=== PATIENT | female | born 1940 | race Hispanic/Latino ===

== ENCOUNTER 2017-01-14 16:15 | Emergency (ER) | payer MEDICARE, OTHER ==
[2017-01-14 16:15] VITALS: BMI 36.6
[2017-01-14] MEDS ORDERED: Sodium Chloride 0.9% 1,000 ML IV STA (16:32)
--- NOTE | 2017-01-14 16:36 | ED PDOC ---
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 per pt she has been feeling generally weak and also "spinning" sensation for the last couple days, worse w sitting up and standing. today she was getting up from the toilet when she felt unsteady and fell forward and hit her head on the wall. she denies any LOC. her daughter came right in and found her on the floor-helped her to bed, gave her some chocolate and within an hour she felt better. she still has some spinning sensation. she admits to not drinking much fluids in general including today. Symptom Onset: Sudden Symptom Course: Unchanged Activities at Onset: Rest Context: Home Past Medical History - Provider Review Nursing Documentation Reviewed: Yes - Infectious Disease Hx of Infectious Diseases: None - Tetanus Immunization Tetanus Immunization: Unknown - Reproductive Menopause: Yes - Cardiac Hx Cardiac Disorders: Yes Hx Hypertension: Yes - Pulmonary Hx Respiratory Disorders: No - Neurological Hx Neurological Disorder: No - HEENT Hx HEENT Disorder: Yes Hx Glaucoma: Yes - Renal Hx Renal Disorder: No - Endocrine/Metabolic Hx Endocrine Disorders: Yes Other/Comment: goiter - Hematological/Oncological Hx AIDS: No Hx Anemia: Yes - Integumentary Hx Dermatological Disorder: Yes Other/Comment: VITILIGO,10--15 CELLULITIS TO TIP OF RIGHT DISTAL INDEX FINGER - Musculoskeletal/Rheumatological Hx Arthritis: Yes Hx Gout: Yes Hx Rheumatoid Arthritis: Yes - Gastrointestinal Hx Gastrointestinal Disorders: No - Genitourinary/Gynecological Hx Genitourinary Disorders: No - Psychiatric Hx Psychophysiologic Disorder: No Hx Depression: Yes Hx Substance Use: No - Past Surgical History Past Surgical History: No Previous - Anesthesia Hx Anesthesia: No Hx Anesthesia Reactions: No - Suicidal Assessment Feels Threatened In Home Enviroment: No Family/Social History - Physician Review Nursing Documentation Reviewed: Yes Family/Social History: No Known Family HX, Other (nc) Smoking Status: Never Smoked Hx Alcohol Use: No Hx Substance Use: No Hx Substance Use Treatment: No Allergies/Home Meds Allergies/Adverse Reactions: Allergies Sulfa (Sulfonamide Antibiotics) Allergy (Verified 01/14/17 16:25) RASH Home Medications: Home Meds Medication Instructions Recorded Confirmed Acetaminophen [Tylenol Extra 500 mg PO BID PRN 01/14/17 01/14/17 Strength] Aspirin [Low Dose Aspirin EC] 81 mg PO HS 01/14/17 01/14/17 Carvedilol [Coreg] 25 mg PO DAILY 01/14/17 01/14/17 Cholecalciferol (Vitamin D3) 1 tab PO DAILY 01/14/17 01/14/17 [Vitamin D3] Cranberry Fruit Extract [Cranberry] 1 tab PO DAILY 01/14/17 01/14/17 Fenofibrate [Tricor] 145 mg PO DAILY 01/14/17 01/14/17 Folic Acid/Multivit-Min/Lutein 1 tab PO DAILY 01/14/17 01/14/17 [Centrum Silver Chewable Tablet] Nortriptyline HCl [Pamelor] 50 mg PO HS 01/14/17 01/14/17 [place]-3 Fatty Acids [Fish Oil] 1,000 mg PO DAILY 01/14/17 01/14/17 traMADol [Ultram] 50 mg PO DAILY 01/14/17 01/14/17 Review of Systems - Review of Systems Constitutional: absent: Fevers Eyes: absent: Vision Changes ENT: absent: Hearing Changes, Tinnitus Respiratory: absent: SOB, Cough Cardiovascular: absent: Chest Pain, Palpitations, Edema Gastrointestinal: absent: Abdominal Pain, Stool Changes, Diarrhea, Nausea, Vomiting, Hematochezia Genitourinary Female: absent: Dysuria Musculoskeletal: absent: Neck Pain Neurological: absent: Headache, Focal Weakness Physical Exam Vital Signs Reviewed: Yes Vital Signs Temp Pulse Resp BP Pulse Ox 01/14/17 18:40 80 18 128/67 97 01/14/17 16:49 98.1 F 61 18 132/72 96 Temperature: Afebrile Blood Pressure: Normal Pulse: Regular Respiratory Rate: Normal Appearance: Positive for: Well-Appearing, Non-Toxic, Comfortable Pain Distress: None Mental Status: Positive for: Alert and Oriented X 3 - Systems Exam Head: Present: Other (small superifical abrasion on the forehead) Pupils: Present: PERRL Extroacular Muscles: Present: EOMI Conjunctiva: Present: Normal Mouth: Present: Moist Mucous Membranes Neck: Present: Normal Range of Motion. No: MIDLINE TENDERNESS Respiratory/Chest: Present: Clear to Auscultation. No: Respiratory Distress, Accessory Muscle Use Cardiovascular: Present: Regular Rate and Rhythm Abdomen: No: Tenderness, Distention Upper Extremity: Present: NORMAL PULSES, Neurovascularly Intact, Other ( ecchymosis on left later arm). No: Deformity Lower Extremity: Present: Normal ROM Neurological: Present: GCS=15, CN II-XII Intact, Motor Func Grossly Intact, Normal Sensory Function, Normal Cerebellar Funct, Other (no focal deficits) Skin: Present: Warm, Dry Psychiatric: Present: Alert, Oriented x 3 Medical Decision Making ED Course and Treatment: ecg- sinus kanika 59, RBBB, similar to prior 08/11/16 CT Head Without Intravenous Contrast FINDINGS: Artifacts: Artifact in some of the images likely relates to motion. Brain: Volume loss. Mild chronic small vessel white matter ischemic change. No acute hemorrhage. No acute infarct. Ventricles: No hydrocephalus. Bones/joints: Unremarkable. No acute fracture. Soft tissues: Unremarkable. Sinuses: Minimal sphenoid sinus mucosal thickening. No fluid levels. Mastoid air cells: Unremarkable as visualized. No mastoid effusion. IMPRESSION: No acute intracranial findings. Involutional and mild chronic small vessel white matter ischemic change. Dictated and Authenticated by: Ji Trejo MD 01/14/2017 7:33 PM Eastern Time ([place] & [place]) 01/14/17 20:40 pt reports feeling better after IVF and meclizine. she is up ambulating around the ED without difficulty. she and family are comfortable w dc home at this time. follow up and return prec advised. - Lab Interpretations Lab Results: 01/14/17 16:30 01/14/17 16:30 Lab Results 01/14/17 16:30: Sodium 134, Potassium 4.3, Chloride 98, Carbon Dioxide 29, Anion Gap 11, BUN 28 H, Creatinine 1.1, Est GFR ( Amer) 58, Est GFR (Non- Af Amer) 48, Random Glucose 84, Calcium 9.8, Total Bilirubin 0.7, AST 36, ALT 27 , Alkaline Phosphatase 54, Troponin I < 0.01, Total Protein 7.8, Albumin 4.4, Globulin 3.4, Albumin/Globulin Ratio 1.3 01/14/17 16:30: WBC 4.8, RBC 5.90, Hgb 11.3 L, Hct 35.4 L, MCV 60.0 L, MCH 19.2 L, MCHC 31.9, RDW 17.0 H, Plt Count 220, Gran % 71.4 H, Lymph % (Auto) 17.1 L, [place] % (Auto) 9.6 H, Eos % (Auto) 1.7, Baso % (Auto) 0.2, Gran # 3.42, Lymph # 0.8 L, [place] # 0.5, Eos # 0.1, Baso # 0.01 I have reviewed the lab results: Yes - RAD Interpretation Radiology Orders: 01/14/17 16:31 HEAD W/O CONTRAST [CT] Stat CHEST ONE VIEW [RAD] Stat - EKG Interpretation Interpreted by ED Physician: Yes Type: 12 lead EKG - Medication Orders Current Medication Orders: Discontinued Medications Sodium Chloride (Sodium Chloride 0.9%) 1,000 mls @ 999 mls/hr IV .Q1H1M STA Stop: 01/14/17 17:32 Last Admin: 01/14/17 16:54 Dose: 999 mls/hr Meclizine HCl (Antivert) 25 mg PO STAT STA Stop: 01/14/17 16:33 Last Admin: 01/14/17 16:54 Dose: 25 mg Midazolam HCl (Versed Inj) 1 mg IVP ONCE ONE Stop: 01/14/17 18:16 Last Admin: 01/14/17 18:36 Dose: 1 mg - Scribe Statement The provider has reviewed the documentation as recorded by the Nicole Kraus Provider Scribe Attestation: All medical record entries made by the Scribe were at my direction and personally dictated by me. I have reviewed the chart and agree that the record accurately reflects my personal performance of the history, physical exam, medical decision making, and the department course for this patient. I have also personally directed, reviewed, and agree with the discharge instructions and disposition. ' Disposition/Present on Arrival - Present on Arrival Any Indicators Present on Arrival: No History of DVT/PE: No History of Uncontrolled Diabetes: No Urinary Catheter: No History of Decub. Ulcer: No History Surgical Site Infection Following: None - Disposition Have Diagnosis and Disposition been Completed?: Yes Diagnosis: Vertigo Disposition: HOME/ ROUTINE Disposition Time: 20:40 Patient Problems: Current Active Problems Problem Status Onset Vertigo Acute Condition: IMPROVED Discharge Instructions (ExitCare): Vertigo (ED) Additional Instructions: Please follow up with your doctor on Sunday. Return to the ER for any worsening symptoms or for any other concerns. Prescriptions: Meclizine [Meclizine*] 25 mg PO Q8H PRN #30 tab PRN Reason: vertigo
[2017-01-14 16:49] VITALS: TEMP 98.1
[2017-01-14 17:07] LABS: ADD MANUAL DIFF? NO
[2017-01-14 17:20] LABS: ALB/GLOB RATIO 1.3 (1.1-1.8); ALKALINE PHOSPHATASE 54 U/L (38-133); ALT/SGPT 27 U/L (7-56); AST/SGOT 36 U/L (15-39); BILIRUBIN,TOTAL 0.7 mg/dL (0.2-1.3); BLOOD UREA NITROGEN 28 mg/dL (7-21); CALCIUM 9.8 mg/dL (8.4-10.5); CARBON DIOXIDE 29 mmol/L (21-33); CHLORIDE 98 mmol/L (98-107); GFR AFRICAN-AMERICAN 58; GLUCOSE,RANDOM 84 mg/dL (70-110); POTASSIUM 4.3 mmol/L (3.6-5.0); SODIUM 134 mmol/L (132-148); TOTAL PROTEIN 7.8 g/dL (5.8-8.3)
[2017-01-14 17:30] LABS: BASO # 0.01 K/mm3 (0.0-2.0); BASO % 0.2 % (0.0-3.0); EOS # 0.1 (0.0-0.7); EOS % 1.7 % (1.5-5.0); GRAN # 3.42 (1.4-6.5); GRAN % 71.4 % (50.0-68.0); HEMATOCRIT 35.4 % (36.0-48.0); LYMPH # 0.8 (1.2-3.4); LYMPH % 17.1 % (22.0-35.0); MEAN CORPUSCULAR HEMOGLOBIN 19.2 pg (25.0-35.0); MEAN CORPUSCULAR HGB CONC 31.9 g/dl (31.0-37.0); MONO # 0.5 (0.1-0.6); MONO % 9.6 % (1.0-6.0); PLATELET COUNT 220 10^3/uL (120.0-450.0); WHITE BLOOD COUNT 4.8 10^3/ul (4.5-11.0)
[2017-01-14 18:03] LABS: TROPONIN I < 0.01 ng/mL
[2017-01-14] MEDS ORDERED: Midazolam 5 MG/5 ML VIAL IVP ONE (18:15)
[2017-01-14 21:05] VITALS: BP 155/91; PULSE 81; RESP 16; O2SAT 95
--- NOTE | 2017-01-15 09:06 | CT ---
PROCEDURE: CT HEAD WITHOUT CONTRAST. HISTORY: Dizziness, fall head trauma COMPARISON: None available. TECHNIQUE: Axial computed tomography images were obtained through the head/brain without intravenous contrast. Radiation dose: Total exam DLP = 774.23 mGy-cm. This CT exam was performed using one or more of the following dose reduction techniques: Automated exposure control, adjustment of the mA and/or kV according to patient size, and/or use of iterative reconstruction technique. FINDINGS: HEMORRHAGE: No intracranial hemorrhage. BRAIN: There are mild chronic microangiopathic changes. There is no mass, mass effect or abnormal extra-axial fluid collection. VENTRICLES: There is mild age-related global parenchymal volume loss and proportionate enlargement of the ventricles and cortical sulci. CALVARIUM: The skull base and calvarium are normal. There are prominent vascular impressions on the calvarium. PARANASAL SINUSES: Predominantly clear. MASTOID AIR CELLS: Predominantly clear . OTHER FINDINGS: None. IMPRESSION: 1. No acute intracranial abnormality. 2. Mild chronic microangiopathic changes and mild age-related global parenchymal volume loss.
--- NOTE | 2017-01-15 09:37 | RAD ---
PROCEDURE: CHEST RADIOGRAPH, 1 VIEW HISTORY: Dizziness COMPARISON: 08/11/2016. FINDINGS: LUNGS: The lungs are well inflated and clear. PLEURA: No pneumothorax or pleural fluid seen. CARDIOVASCULAR: There is persistent moderate cardiomegaly. OSSEOUS STRUCTURES: There is moderate degenerative osteoarthrosis in the right glenohumeral joint. VISUALIZED UPPER ABDOMEN: Normal. OTHER FINDINGS: None. IMPRESSION: No active pulmonary disease. Persistent moderate cardiomegaly.
--- NOTE | 2017-01-16 00:16 | CARD ---
APPROVED REPORT EKG Measurement Heart [id number] MA [id number]-3 [id number] <Conclusion> Sinus bradycardia Possible Left atrial enlargement Right bundle branch block Possible Lateral infarct, age undetermined Abnormal ECG
== END 2017-01-14 21:05 | disposition home or self-care (01) ==
LOC: ED 16:15
DX: R42 Dizziness and giddiness (principal); I10 Essential (primary) hypertension; D64.9 Anemia, unspecified
CPT/HCPCS: 70450; 71010; 80053; 84484; 85025; 96360; 99284; J2250; J7040